=== PATIENT | female | born 1980 | race Caucasian/White ===

== ENCOUNTER 2017-02-13 06:29 | Emergency (ER) | payer OTHER ==
[2017-02-13 06:29] VITALS: BMI 36.3
[2017-02-13 06:39] VITALS: BP 137/89; PULSE 85; RESP 19; TEMP 98.2; O2SAT 100
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
[2017-02-13 08:12] LABS: ARTERIAL BLOOD GAS HCO3 26.8 mmol/L (21-28); ARTERIAL BLOOD GAS PH 7.48 (7.35-7.45); ARTERIAL BLOOD HGB O2 SAT 98.2 % (95.0-98.0); CARBOXYHEMOGLOBIN 1.4 % (0.5-1.5); HHB -0.1 % (0-5); METHEMOGLOBIN 0.6 % (0.0-3.0)
--- NOTE | 2017-02-13 14:35 | CARD ---
APPROVED REPORT EKG Measurement Heart [id number] <Conclusion> Normal sinus rhythm Normal ECG
== END 2017-02-13 09:03 | disposition home or self-care (01) ==
LOC: ED 06:29
DX: T59.811A Toxic effect of smoke, accidental (unintentional), initial encounter (principal); J70.5 Respiratory conditions due to smoke inhalation; Y92.008 Other place in unspecified non-institutional (private) residence as the place of occurrence of the external cause

== ENCOUNTER 2017-10-23 13:57 | Emergency (ER) | payer OTHER ==
[2017-10-23 13:57] VITALS: BMI 36.3
--- NOTE | 2017-10-23 15:27 | ED PDOC ---
Arrival/HPI - General Chief Complaint: Dental Pain Time Seen by Provider: 10/23/17 14:51 Historian: Patient - History of Present Illness Narrative History of Present Illness (Text): 10/23/17 15:30 37-year-old female presents today with a three-day history of worsening left lower tooth pain. Patient states she has an appointment scheduled with her dentist for toothache. Patient states occasionally she has been taking a leftover clindamycin for dental pain. Patient states she has been taking Motrin and Tylenol. Patient states she feels as if the redness within the gums has been spreading. She denies trismus or drooling. Denies any fevers or chills. Denies headaches. No other complaints Symptom Onset: Gradual Symptom Course: Worsening Quality: Aching, Throbbing Severity Level: 6 Past Medical History - Provider Review Nursing Documentation Reviewed: Yes - Travel History Have you recently traveled outside [place] w/in the past 3 mons?: No - Past History Past History: No Previous - Infectious Disease Hx of Infectious Diseases: None - Tetanus Immunization Tetanus Immunization: Unknown - Cardiac Hx Cardiac Disorders: No - Pulmonary Hx Respiratory Disorders: No - Neurological Hx Neurological Disorder: No - HEENT Hx HEENT Disorder: No - Renal Hx Renal Disorder: No - Endocrine/Metabolic Hx Endocrine Disorders: No - Hematological/Oncological Hx Blood Disorders: Yes Hx Anemia: Yes - Integumentary Hx Dermatological Disorder: No - Musculoskeletal/Rheumatological Hx Musculoskeletal Disorders: No - Gastrointestinal Hx Gastrointestinal Disorders: No - Genitourinary/Gynecological Hx Genitourinary Disorders: Yes Other/Comment: Endometriosis - Psychiatric Hx Psychophysiologic Disorder: No Hx Anxiety: No Hx Bipolar Disorder: No Hx Depression: No Hx Emotional Abuse: No Hx Hallucinations: No Hx Panic Disorder: No Hx Post Traumatic Stress Disorder: No Hx Psychosis: No Hx Physical Abuse: No Hx Schizophrenia: No Hx Sexual Abuse: No Hx Substance Use: No - Surgical History Hx Hysterectomy: Yes (partial) Hx Orthopedic Surgery: Yes (ankle) Other/Comment: Gastric sleeve - Anesthesia Hx Anesthesia: Yes Hx Anesthesia Reactions: No Hx Malignant Hyperthermia: No - Suicidal Assessment Feels Threatened In Home Enviroment: No Family/Social History - Physician Review Nursing Documentation Reviewed: Yes Family/Social History: Unknown Family HX Smoking Status: Never Smoked Hx Alcohol Use: No Hx Substance Use: No Hx Substance Use Treatment: No Allergies/Home Meds Allergies/Adverse Reactions: Allergies prednisone Allergy (Verified 10/23/17 14:48) ANAPHYLAXIS shellfish derived Allergy (Verified 10/23/17 14:48) SHORTNESS OF BREATH Review of Systems - Review of Systems Constitutional: absent: Fatigue, Fevers ENT: Other (toothache). absent: Sore Throat, Sinus Congestion Respiratory: absent: SOB, Cough Cardiovascular: absent: Chest Pain, Palpitations Gastrointestinal: absent: Abdominal Pain, Nausea, Vomiting Skin: absent: Rash, Pruritis Neurological: absent: Headache, Dizziness Psychiatric: absent: Anxiety, Depression Physical Exam Vital Signs Reviewed: Yes Temperature: Afebrile Blood Pressure: Normal Pulse: Regular Respiratory Rate: Normal Appearance: Positive for: Well-Appearing, Non-Toxic, Comfortable Pain Distress: None Mental Status: Positive for: Alert and Oriented X 3 - Systems Exam Head: Present: Atraumatic Conjunctiva: Present: Normal Ears: Present: Normal, NORMAL TM Mouth: Present: Moist Mucous Membranes, Normal Lips, Normal Tounge. No: Drooling, Trismus, Normal Teeth (+ left lower molar dental fracture with tenderness, no erythema; no edema, no ecchymosis. ) Pharnyx: Present: Normal. No: ERYTHEMA, EXUDATE, TONSILS ENLARGED Neck: Present: Normal Range of Motion Respiratory/Chest: Present: Clear to Auscultation, Good Air Exchange. No: Respiratory Distress, Accessory Muscle Use Cardiovascular: Present: Regular Rate and Rhythm, Normal S1, S2. No: Murmurs Neurological: Present: GCS=15, Speech Normal Skin: Present: Warm, Dry, Normal Color Psychiatric: Present: Alert, Oriented x 3 Medical Decision Making ED Course and Treatment: 10/23/17 15:35 Patient is nontoxic well-appearing in no distress with stable vital signs No trismus or drooling, moist mucous membranes Amoxicillin toradol I advised follow-up with the dentist within the next 2 days. I advised immediate return is symptoms worsen persist or if new concerning symptoms develop Patient verbalizes understanding of discharge instructions and need for immediate followup. all aspects of this case were discussed the attending of record. Impression: Toothache, dental fracture Motrin every 6 hours as needed for pain Amoxicillin 1 tablet 3 times daily 10 days Follow-up with the dentist within the next 2 days Follow up with the primary care physician within the next 2 days. Return immediately if symptoms worsen persist or if new concerning symptoms develop Disposition/Present on Arrival - Present on Arrival Any Indicators Present on Arrival: No History of DVT/PE: No History of Uncontrolled Diabetes: No Urinary Catheter: No History of Decub. Ulcer: No History Surgical Site Infection Following: None - Disposition Have Diagnosis and Disposition been Completed?: Yes Diagnosis: Toothache Disposition: HOME/ ROUTINE Disposition Time: 15:23 Patient Plan: Discharge Condition: GOOD Discharge Instructions (ExitCare): Dental Pain (DC) Additional Instructions: Motrin every 6 hours as needed for pain Amoxicillin 1 tablet 3 times daily 10 days Follow-up with the dentist within the next 2 days Follow up with the primary care physician within the next 2 days. Return immediately if symptoms worsen persist or if new concerning symptoms develop Prescriptions: Amoxicillin 500 mg PO TID #30 tab Ibuprofen [Motrin] 600 mg PO Q6H PRN #20 tab PRN Reason: pain/fever reduction Referrals: Baryon Allison DMD [Non-Staff] - Follow up with primary Dionicio Salmon DMD [Staff Provider] - Follow up with primary Forms: [employer] (Georgian), WORK NOTE
[2017-10-23 15:39] VITALS: RESP 18; O2SAT 100
[2017-10-23 16:33] VITALS: BP 118/75; PULSE 68; TEMP 98.3
== END 2017-10-23 16:32 | disposition home or self-care (01) ==
LOC: ED 13:57
DX: K08.89 Other specified disorders of teeth and supporting structures (principal)
CPT/HCPCS: 96372; 99283; J1885

== ENCOUNTER 2018-06-28 18:36 | Emergency (ER) | payer OTHER ==
[2018-06-28 18:36] VITALS: BMI 30.2
[2018-06-28 18:47] VITALS: TEMP 98.8; O2SAT 100
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
[2018-06-28 22:01] VITALS: BP 118/72; PULSE 78; RESP 16
--- NOTE | 2018-06-29 11:12 | RAD ---
Date of service: 06/28/2018 PROCEDURE: Radiographs of the Lumbar Spine. HISTORY: pain COMPARISON: No prior. FINDINGS: BONES: Normal alignment. No listhesis. No fracture. DISC SPACES: Unremarkable. OTHER FINDINGS: None. IMPRESSION: Unremarkable radiographs of the lumbar spine.
--- NOTE | 2018-06-29 11:12 | RAD ---
Date of service: 06/28/2018 PROCEDURE: Radiographs of the pelvis. HISTORY: pain COMPARISON: None. FINDINGS: BONES: Pelvic Bones: Unremarkable. Hips: Grossly unremarkable. JOINTS: Sacroiliac Joints: Unremarkable. Pubic Symphysis: Unremarkable. OTHER FINDINGS: None. IMPRESSION: Unremarkable radiographs of the pelvis.
--- NOTE | 2018-06-29 11:14 | RAD ---
Date of service: 06/28/2018 PROCEDURE: Radiographs of the Sacrum and Coccyx HISTORY: pain COMPARISON: None available. TECHNIQUE: Frontal and lateral views of the sacrum and coccyx FINDINGS: BONES: There is a nondisplaced fracture of the coccyx SACROILIAC JOINTS: Unremarkable. OTHER FINDINGS: None. IMPRESSION: There is a nondisplaced fracture of the coccyx
== END 2018-06-28 21:56 | disposition home or self-care (01) ==
LOC: ED 18:36
DX: S30.0XXA Contusion of lower back and pelvis, initial encounter (principal); W01.0XXA Fall on same level from slipping, tripping and stumbling without subsequent striking against object, initial encounter; M54.5 Low back pain
CPT/HCPCS: 72110; 72170; 72220; 81025; 96372; 99284; J1885